=== PATIENT | male | born 1995 | race Caucasian/White ===

== ENCOUNTER 2017-11-08 09:41 | Emergency (ER) | payer OTHER ==
[~2017-11-08] VITALS: Ht 188 cm; Wt 104.3 kg
[2017-11-08 09:45] VITALS: BP_SYST 142
[2017-11-08] MEDS ORDERED: LIDOCAINE 1% 10 MG/ML, 20 ML MDV INJ ONE (10:00)
[2017-11-08] MEDS ORDERED: DIPH-TET-PERTUS Vaccine 0.5 ML VIAL (ADACEL) I.M. ONE (10:15)
[2017-11-08] MEDS ORDERED: MORPHINE 4 MG/ML INJ. SYRINGE ONE (10:22)
[2017-11-08] MEDS ORDERED: MORPHINE 4 MG/ML INJ. SYRINGE IM ONE (10:30)
[2017-11-08] MEDS ORDERED: BACITRACIN 1 GM OINT TP ONE (10:30)
[2017-11-08] MEDS ORDERED: AMPICILLIN SODIUM/SULBACTAM NA 1.5 GM VIAL IM ONE (10:30)
[2017-11-08 10:47] LABS: BASOPHILS # (AUTO) 0.2 K/uL (0.0-0.2); BASOPHILS % (AUTO) 1.3 % (0.0-2.0); EOSINOPHILS # (AUTO) 0.1 K/uL (0.0-0.4); EOSINOPHILS % (AUTO) 0.9 % (0.0-4.0); HEMATOCRIT 45.1 % (36-54); HEMOGLOBIN 15.3 g/dL (14.0-18.0); LYMPHOCYTES % (AUTO) 15.2 % (20.5-51.5); MEAN CORPUSCULAR HEMOGLOBIN 29 pg (27-31); MEAN CORPUSCULAR HGB CONC 34 % (32-36); MEAN CORPUSCULAR VOLUME 86 fL (79.0-98.0); MONOCYTES # (AUTO) 0.8 K/uL (0.0-1.0); MONOCYTES % (AUTO) 6.1 % (1.7-9.3); NEUTROPHILS # (AUTO) 10.2 K/uL (1.8-7.7); NEUTROPHILS % (AUTO) 76.5 % (40.0-70.0); PLATELET COUNT (AUTO) 362 K/uL (130-430); RED BLOOD CELL COUNT(AUTO) 5.26 MIL/uL (4.2-6.2); RED CELL DISTRIBUTION WIDTH 13.6 % (9.0-15.0); WHITE BLOOD COUNT (AUTO) 13.3 K/uL (4.8-10.8)
[2017-11-08 11:12] VITALS: BP_SYST 134
== END 2017-11-08 11:12 | disposition home or self-care (01) ==
LOC: SED 09:41
DX: L03.114 Cellulitis of left upper limb (principal)
CPT/HCPCS: 10060; 36415; 85025; 90471; 90715; 96372; 99284; J0295; J2270

== ENCOUNTER 2017-11-09 12:43 | Emergency (ER) | payer OTHER ==
[~2017-11-09] VITALS: Ht 188 cm; Wt 104.3 kg
[2017-11-09 12:45] VITALS: BP_SYST 129
[2017-11-09 13:31] VITALS: BP_SYST 129
== END 2017-11-09 13:31 | disposition home or self-care (01) ==
LOC: SED 12:43
DX: Z48.01 Encounter for change or removal of surgical wound dressing (principal)
CPT/HCPCS: 99282